=== PATIENT | female | born 1995 | race Caucasian/White ===

== ENCOUNTER 2016-06-09 16:38 | Emergency (ER) | payer OTHER ==
[~2016-06-09] VITALS: Ht 172.7 cm; Wt 57.7 kg
[~2016-06-09 16:38] MED LIST: ALBU1AER9 INH; BCPILLS PO; CETI10TA84 PO; DIPH25CA65 PO; MODA1TAB PO; MONT1TAB3 PO
[2016-06-09 16:47] VITALS: TEMP 37; Ht 172.7 cm; Wt 57.7 kg
[2016-06-09] MEDS ORDERED: ALBUT/IPRATROP 3MG/0.5MG NEB 3 ML VIAL INH STA (17:01)
--- NOTE | 2016-06-09 17:11 | EMERGENCY ROOM VISIT NOTE ---
History Report prepared by Candi: Zaida Carvajal Under the Supervision of: Dr. Magdiel Alfaro D.O. First contact with patient: 16:50 Chief Complaint: ILLNESS Stated Complaint: ASTHMA,TIGHT CHEST,BREATHING ISSUES,RUNNY NOSE History of Present Illness The patient is a 20 year old female who presents to the Emergency Room with complaints of a worsening illness for the past few days. Her symptoms began with a sore throat that has not gone away. Over the past couple of days she has started experiencing shortness of breath and a productive cough. Her symptoms are worse with exertion. She has a personal history of asthma. The patient has been using both her albuterol inhaler and her steroid inhaler multiple times a day without any relief. She has been on oral prednisone in the past, with the most recent time being last spring. The patient denies chest pain, fever, and leg pain or swelling. Her roommate recently had the flu. The patient had a flu shot this year. She does not take an OCP. Source of History: patient Onset: a few days ago Position: other (global) Quality: other (illness) Timing: worsening Modifying Factors (Worsening): exertion Associated Symptoms: + SOB, + cough, No chest pain, No fevers Review of Systems See HPI for pertinent positives & negatives. A total of 10 systems reviewed and were otherwise negative. Past Medical & Surgical Medical Problems: (1) Asthma Family History Heart disease Hypertension Social History Smoking Status: Never Smoker Smokeless Tobacco Use: No Alcohol Use: occasionally Marital Status: single Housing Status: lives with roommate Occupation Status: [employer] student Current/Historical Medications Scheduled Albuterol Sulfate (Proair Respiclick), 2 PUFFS INH UD Cetirizine (Zyrtec), 10 MG PO QPM Fluticasone Propionate (Nasal) (Flonase Allergy Relief), 2 SPRAYS KACI DAILY Modafinil (Provigil), 100 MG PO DAILY Montelukast Sodium (Singulair), 10 MG PO HS Prednisone (Prednisone Tab), 40 MG PO DAILY Scheduled PRN Fluticasone-Salmeterol 45/21 Mcg (Advair Hfa 45/21 Mcg), 2 PUFFS IN BID PRN for SOB/Wheezing Allergies Coded Allergies: Amoxicillin (Verified Allergy, Unknown, rash, 06/09/16) Sulfa Antibiotics (Verified Allergy, Unknown, rash, 06/09/16) Physical Exam Vital Signs Date Time Temp Pulse Resp B/P Pulse Ox O2 Delivery O2 Flow Rate FiO2 06/09/16 18:53 85 18 105/66 100 06/09/16 16:47 37.0 94 18 148/103 97 Room Air Physical Exam GENERAL: Patient is awake, alert, and in no acute distress. Patient is resting comfortably and showing no signs of anxiety EYES: The conjunctivae are clear. The pupils are round and reactive. EARS, NOSE, MOUTH AND THROAT: The nose is without any evidence of any deformity. Mucous membranes are moist tongue is midline. TMs are clear bilaterally. NECK: The neck is nontender and supple. RESPIRATORY: Breath sounds diminished throughout with scattered rhonchi, no tachypnea or conversation dyspnea noted. CARDIOVASCULAR: Regular rate and rhythm noted there no murmurs rubs or gallops normal S1 normal S2 GASTROINTESTINAL: The abdomen is soft. Bowel sounds are present in all quadrants. Abdomen is nontender MUSCULOSKELETAL/EXTREMITIES: There is no evidence of gross deformity full range of motion is noted in the hips and shoulders SKIN: There is no obvious evidence of any rash. There are no petechiae, pallor or cyanosis noted. NEUROLOGIC: Patient is awake alert and oriented x3 Medical Decision & Procedures ER Provider Diagnostic Interpretation: Radiology results as stated below per my review and radiologist interpretation: TWO VIEW CHEST CLINICAL HISTORY: Cough and dyspnea. FINDINGS: PA and lateral chest radiographs are obtained. No prior studies are available for comparison at the time of dictation. The cardiomediastinal silhouette is unremarkable. The lungs and pleural spaces are clear. There is no pneumothorax. The bony thorax appears intact. There are bilateral nipple piercings. IMPRESSION: No active disease in the chest. Electronically signed by: Félix Chaney M.D. 06/09/2016 5:56 PM Dictated Date/Time: 06/09/2016 5:55 PM Laboratory Results Test 06/09/16 17:10 Influenza Type A Antigen Neg for Influ A (NEG) Influenza Type B Antigen Neg for Influ B (NEG) Laboratory results per my review. Medications Administered Medications (Trade) Dose Ordered Sig/Glenn Route Start Time Stop Time Status Last Admin Dose Admin Albuterol/ Ipratropium (Duoneb) 3 ml NOW STAT INH 06/09/16 17:01 06/09/16 17:02 DC 06/09/16 17:08 3 ML Prednisone (PredniSONE TAB) 60 mg NOW STAT PO 06/09/16 17:01 06/09/16 17:02 DC 06/09/16 17:08 60 MG ED Course 1650: The patient was evaluated in room B2. A complete history and physical examination were performed. 1701: Prednisone 60 mg PO, Duoneb 3 ml INH 1810: I reassessed the patient at this time. She is feeling better and resting comfortably. I discussed the results and treatment plan with the patient. I answered all pertaining questions that she had. She expressed understanding and verbalized agreement. The patient will be discharged home. Medical Decision Differential diagnosis: Etiologies such as infections, reactive airway disease, pneumonia, pneumothorax , COPD, CHF, cardiac ischemia, pulmonary embolism, musculoskeletal, gastrointestinal, as well as others were entertained. Nursing notes reviewed. The patient is a 20-year-old male who presented to the emergency apartment for an evaluation shortness of breath. The patient describes tightness across her chest that she states is similar to when she has had asthma exacerbation in the past. The patient is not hypoxic or tachycardic. Her chest x-ray did not reveal any signs of infiltrate. She was concerned because her roommate was recently diagnosed with influenza. Her influenza swab was negative. I discussed the patient's laboratory and radiographic studies with her. She was encouraged to rest and avoid any strenuous activity. She was encouraged to continue all medications as prescribed. She was also encouraged to follow-up with her primary care physician as soon as possible but return to the emergency apartment immediately if symptoms change worsen or if the need arises. Impression Primary Impression: Asthma exacerbation Scribe Attestation The scribe's documentation has been prepared under my direction and personally reviewed by me in its entirety. I confirm that the note above accurately reflects all work, treatment, procedures, and medical decision making performed by me. Departure Information Dispostion Home / Self-Care Prescriptions Prednisone (Prednisone Tab) 20 Mg Tab 40 MG PO DAILY, #10 TAB Prov: Magdiel Alfaro, 06/09/16 Referrals [facility] Forms HOME CARE DOCUMENTATION FORM, IMPORTANT VISIT INFORMATION, WORK / SCHOOL INSTRUCTIONS Patient Instructions Asthma - [facility], [facility] Additional Instructions Follow-up with [facility] for reevaluation. Rest and avoid any strenuous activity. Continue all medications as prescribed.
[2016-06-09] MEDS ORDERED: MONT1TAB3 PO (17:20)
[2016-06-09] MEDS ORDERED: FLUT45AE IN (17:20)
[2016-06-09] MEDS ORDERED: FLUT0.15 NAE (17:20)
[2016-06-09] MEDS ORDERED: MODA1TAB5 PO (17:20)
[2016-06-09] MEDS ORDERED: ALBU18002 INH (17:20)
[2016-06-09] MEDS ORDERED: CETI10TA84 PO (17:20)
--- NOTE | 2016-06-09 17:57 | DIAGNOSTIC IMAGING REPORT ---
TWO VIEW CHEST CLINICAL HISTORY: Cough and dyspnea. FINDINGS: PA and lateral chest radiographs are obtained. No prior studies are available for comparison at the time of dictation. The cardiomediastinal silhouette is unremarkable. The lungs and pleural spaces are clear. There is no pneumothorax. The bony thorax appears intact. There are bilateral nipple piercings. IMPRESSION: No active disease in the chest. Electronically signed by: Félix Chaney M.D. 06/09/2016 5:56 PM Dictated Date/Time: 06/09/2016 5:55 PM
[2016-06-09] MEDS ORDERED: PRED20TA2 PO (18:08)
[2016-06-09 18:53] VITALS: BP 105/66; PULSE 85; O2SAT 100
== END 2016-06-09 18:54 | disposition home or self-care (01) ==
LOC: MERGE 16:40 → C.EDB 16:40 → EDBD 16:40 → C.EDB 18:54
DX: J45.901 Unspecified asthma with (acute) exacerbation (principal); Z82.49 Family history of ischemic heart disease and other diseases of the circulatory system; Z79.899 Other long term (current) drug therapy

== ENCOUNTER 2017-01-16 19:16 | Emergency (ER) | payer OTHER ==
[~2017-01-16] VITALS: Ht 172.7 cm; Wt 59.3 kg
[~2017-01-16 19:16] MED LIST changes: +ALBU18002 INH; +FLUT0.15 NAE; +FLUT45AE IN; +MODA1TAB5 PO
[2017-01-16 19:19] VITALS: TEMP 36.8; Ht 172.7 cm; Wt 59.3 kg
[2017-01-16 19:44] LABS: MANUAL MICROSCOPIC REQUIRED? YES; URINE APPEARANCE TURBID (CLEAR); URINE BILIRUBIN NEG (NEG); URINE COLOR RED; URINE NITRITE POS (NEG); UROBILINOGEN NEG (NEG)
[2017-01-16 19:45] LABS: REVIEW REQ? NO
[2017-01-16 19:47] LABS: URINE RBC >30 /hpf (0-4); URINE WBC >30 /hpf (0-5)
[2017-01-16 19:48] LABS: URINE BACTERIA NEG (NEG); ZZUR CULT IF INDIC CLEAN CATCH YES
[2017-01-16] MEDS ORDERED: PHENAZOPYRIDINE HCL 200 MG TAB PO STA (19:52)
[2017-01-16] MEDS ORDERED: NITROFURANTOIN MONOHYDRATE 100 MG CAP PO STA (19:52)
--- NOTE | 2017-01-16 19:58 | EMERGENCY ROOM VISIT NOTE ---
ED Visit Note First contact with patient: 19:22 CHIEF COMPLAINT: Dysuria and hematuria HISTORY OF PRESENT ILLNESS: This 21 year old woman has had dysuria and hematuria which started this morning. She states is getting progressively worse. The patient denies any urinary frequency or urgency.. She denies back pain, fever, or vaginal discharge. The patient denies any history of frequent UTIs. The patient denies a history of kidney stones. REVIEW OF SYSTEMS: 6 system review was performed and was negative unless stated otherwise in history of present illness. PMH: The patient is healthy; scoliosis, asthma, tonsillectomy, adenoidectomy SOCIAL HISTORY: Patient is a [employer] student. The patient denies tobacco use but admits to occasional alcohol use. PHYSICAL EXAM: Vital Signs: Were reviewed Reviewed Nurse's notes. GEN.: 21-year -old female appears in no acute distress. MENTAL Status: Alert and oriented 3. LUNGS: Clear to auscultation without wheezes rales or rhonchi. CARDIAC: Regular rate and rhythm without murmur. BACK: No CVA tenderness noted. ABDOMEN : The abdomen is soft, mildly tender in the suprapubic area, but no masses or organs are felt. EMERGENCY DEPARTMENT COURSE: The patient was evaluated. Unable to evaluate urine dip due to collar. Urine was sent for microanalysis and culture. Microanalysis revealed positive blood positive leukocytes positive nitrates. This will be sent for culture. The patient was given Macrobid 100 mg by mouth and Pyridium 200 mg by mouth while in the emergency room. The patient was discharged home in stable condition. DIAGNOSIS: UTI - Cystitis DISCHARGE INSTRUCTIONS & TREATMENT: High fluid intake, take Macrobid as prescribed. Take Pyridium as directed. This will turn her urine orange. If symptoms are not improving in 36 hours, call for urine culture results. If symptoms worsen in the interim, seek further medical attention. Problem List Medical Problems: (1) Asthma Status: Chronic (2) Asthma Status: Chronic (3) Bronchitis Status: Resolved (4) Pneumonia Status: Resolved (5) Scoliosis Status: Resolved Current/Historical Medications Scheduled Albuterol Sulfate (Proair Respiclick), 2 PUFFS INH UD Control Pills ( Control Pills), 1 TAB PO DAILY Cetirizine (Zyrtec), 10 MG PO DAILY Cetirizine (Zyrtec), 10 MG PO QPM Diphenhydramine Hcl (Benadryl Allergy), 2 CAP PO PRN Fluticasone Propionate (Nasal) (Flonase Allergy Relief), 2 SPRAYS KACI DAILY Modafinil (Provigil), 100 MG PO DAILY Montelukast Sodium (Singulair), 10 MG PO DAILY Montelukast Sodium (Singulair), 10 MG PO HS Scheduled PRN Albuterol (Proair Hfa), 2 PUFFS INH Q4H PRN for SOB/Wheezing Fluticasone-Salmeterol 45/21 Mcg (Advair Hfa 45/21 Mcg), 2 PUFFS IN BID PRN for SOB/Wheezing Modafinil (Provigil), 200 MG PO QAM PRN for Allergies Coded Allergies: Sulfa Antibiotics (Verified Allergy, Intermediate, RASH, 01/16/17) Amoxicillin (Verified Allergy, Mild, RASH, 01/16/17) Vital Signs Date Time Temp Pulse Resp B/P (MAP) Pulse Ox O2 Delivery O2 Flow Rate FiO2 01/16/17 19:19 36.8 101 20 121/86 95 Room Air Laboratory Results Test 01/16/17 00:00 Urine Color RED Urine Appearance TURBID (CLEAR) Urine pH 7.0 (4.5-7.5) Urine Specific [place] 1.020 (1.000-1.030) Urine Protein 3+ (NEG) Urine Glucose (UA) NEG (NEG) Urine Ketones NEG (NEG) Urine Occult Blood 3+ (NEG) Urine Nitrite POS (NEG) Urine Bilirubin NEG (NEG) Urine Urobilinogen NEG (NEG) Urine Leukocyte Esterase TRACE (NEG) Urine RBC >30 /hpf (0-4) Urine WBC >30 /hpf (0-5) Urine Epithelial Cells 20-30 /lpf (0-5) Urine Bacteria NEG (NEG) Departure Information Referrals No Doctor, Assigned (PCP) Patient Instructions [facility]
[2017-01-16] MEDS ORDERED: NITR-5 PO ×2 (19:59→20:16)
[2017-01-16] MEDS ORDERED: PHEN-876 PO ×2 (19:59→20:16)
[2017-01-16] MEDS ORDERED: MULT-506 PO (20:14)
[2017-01-16 20:15] VITALS: BP 115/76; PULSE 88; O2SAT 98
--- NOTE | 2017-01-18 11:50 | Pharmacy Progress Note ---
ED Pharmacist Culture FollowUp Date of Service: Jan 18, 2017. Patient was sent home with a prescription for macrobid 100mg BID X 7 days, which should cover the E. Coli growing from the patient's urine culture.
== END 2017-01-16 20:21 | disposition home or self-care (01) ==
LOC: C.EDB 19:18 → C.EDD 20:21
DX: N30.90 Cystitis, unspecified without hematuria (principal); J45.909 Unspecified asthma, uncomplicated; Z79.899 Other long term (current) drug therapy; Z98.890 Other specified postprocedural states; Z88.1 Allergy status to other antibiotic agents; Z88.2 Allergy status to sulfonamides